=== PATIENT | female | born 2005 ===

== ENCOUNTER → 2024-08-25 23:59 | Outpatient (BNV) | payer OTHER, SELFPAY ==
--- NOTE | 2024-08-26 09:53 | A.OFFVIS_ITS ---
Intake Visit Reasons: follow up Allergies Seasonal Allergies Allergy (Mild, Verified 08/26/24 10:02) Nasal congestion HPI Comments Details: Met student today for orientation.? She has negative test done by Tricia on Saturday and states that she got her period 08/21.? She hasn?t picked up the control pills that tricia rx?d yet and thinks she wants to wait until her period is over before starting them.? Later during visit she states it took her 3 years of trying to get the last time and she thinks she will be unable to get this time.? She is having sex w/ baby?s father although she moved out of the place they shared together w/ his parents because she didn?t want to live with them - he and she have a good enough relationship but it was bad because of his parents.? So they still see each other (no sex while on period) - attempted discussion about starting pills on her period as most effective - but she seems disinterested in this conversation.? I reflected that she doesn?t think she will get so is unlikely to start pills and she states she doesn?t want to get NOW - would like to wait until she has finished school and has a job.? She hasn?t picked up the pills yet.? ROS:She is yawning a lot during visit.? Asked if she?s ok to talk to me and she states that she?s just tired. Always tired.? Tired during period especially.? She is congested - she states that she has allergies and they are bad.? She usually takes Flonase but has run out.? She would appreciate a prescription . I gave her a Claritin for this and one for tomorrow to see if this helps- she will let me know.? Once I get computer access I will put through RX for her for both these meds MOOD:? she states that she is ?ok? (PHQ 6) was depressed before and was started on anti-depressants but states that this was because she was in DCF custody and when she turned 16 she stopped them.? She was in DCF custody at age 15-18 and was on meds 16-17.? She states she was in DCF custody because she was a really bad kid ?I Think teenagers are terrible!?? She states she was skipping school a LOT and not going home, and smoking a lot of weed (she no longer smokes) and ignoring her mother?s attempts to get her back home and behaving better.? She states that her childhood prior to this period of her life was good.? Feels that DCF intervention saved her from things going really bad, but that this custody issue also caused her a lot of anxiety and she?s not ok because of it.? She says ?I don?t want to talk about it anymore? so we stopped the conversation and moved away with offer to revisit as desired.? I spoke with CV above and also she will monitor this closer.? Anxiety is more her issue now but she feels that it is nothing new and she can manage it - doesn?t want meds and doesn?t want therapy. (Let this go for now) NO CIG, CURRENTLY NO DRUGS (previous weed ?a lot?), and NO ALCOHOL SOCIAL Living w/ her mother happily - her mother watches the baby for her during school and Socorro is happy about that. ? She doesn?t have a primary - her baby goes to [facility] [address] in [place] and she would go there but she has to change her [facility] and it?s hard to do - ?I took care of the baby first - always take care of her first? PMH: no issues, gets headaches but not migraines FMH: non-contributory. ? PLAN: * Claritin and Flonase rx need to be put through EMR * concerns/risk- counseling and consultation w/ ramila David after visit to suggest she follow this? mj malhotra informed through this note as well. I am concerned that she is at risk for unintended second but she is not seeing this as issue at the moment.? She has relationship w Tricia on Saturday - so she will address as well * MOOD: I think there are deeper issues here, but she didn?t want to address today and with the goal of maintaining and building relationship I didn?t approach it further.? The door was left open here and her onsite counselor will attempt to continue to monitor. Approach therapy and med discussion again when appropriate? [facility] Medical History (Updated 08/26/24 @ 10:11 by GABY Freeman) Oral contraceptive prescribed Seasonal allergies Anxiety disorder, unspecified History of marijuana use History of adverse childhood experiences History of depression Female Reproductive History Menstrual control method: none Total pregnancies: 1 Full term: 1 Review of Systems Const Details: Counseling visit: All systems reviewed & are unremarkable except as noted in HPI and below Reports as per HPI Resp Reports as per HPI GI Reports as per HPI Musc Reports as per HPI Neuro Reports as per HPI Psych Reports as per HPI Physical Exam Const General: cooperative, healthy appearing and no acute distress Nutritional Appearance: well nourished Orientation/consciousness: oriented to person Limitations: no limitations HEENT Other: wnl Eyes Other: wnl Chest Other: easy breathing Resp Effort & Inspection: able to speak in complete sentences Skin Other: normal in appearance Neuro General: oriented to person Psych Other: see HPI Mental Status: mental status grossly normal Speech and movement: Clear speech present Attitude: cooperative Thought process: Normal thought process present Assessment & Plan Assessment & Plan (1) Anxiety disorder, unspecified: Code(s): F41.9 - Anxiety disorder, unspecified Category: Medical (2) Seasonal allergies: Code(s): J30.2 - Other seasonal allergic rhinitis Category: Medical (3) control counseling: Code(s): Z30.09 - Encounter for other general counseling and advice on contraception Category: Medical (4) Irregular menses: Code(s): N92.6 - Irregular menstruation, unspecified Category: Medical (5) Oral contraceptive prescribed: Comment: she hasn't picked up rx yet Code(s): Z30.011 - Encounter for initial prescription of contraceptive pills Category: Medical (6) Counseling and coordination of care: Code(s): Z71.89 - Other specified counseling Category: Medical (7) History of adverse childhood experiences: Code(s): Z62.9 - Problem related to upbringing, unspecified Category: Medical Plan PLAN: * claritin given now - Claritin and Flonase rx need to be put through EMR when visit is entered * concerns/risk-hcg documented as negative, control counseling - reinforced previous rx of ocp by different SOIL TECHNICIAN and consultation w/ ramila David after visit to suggest she follow this?issue w/ student - tricia informed through this note as well. I am concerned that she is at risk for unintended second but she is not seeing this as issue at the moment.? She has relationship w Tricia on Saturday - so she will address as well * MOOD: I think there are deeper issues here, but she didn?t want to address today and with the goal of maintaining and building relationship I didn?t approach it further.? The door was left open here and her onsite counselor will attempt to continue to monitor. Approach therapy and med discussion again when appropriate? Orders: Orders AMB HCG Urine Test Today N92.6 - Irregular menstruation, unspecified, Z32.02 - Encounter for test, result negative Medications: New fluticasone propionate 50 mcg/actuation (Flonase Allergy Relief) administer into each nostril 2 sprays intranasal DAILY 16 grams 1RF loratadine (Claritin) 10 mg PO DAILY PRN 30 tabs 0RF allergy symptoms Coding Level of Care Code New Pt Level 5 (27529) Diagnoses Anxiety disorder, unspecified F41.9 Seasonal allergies J30.2 control counseling Z30.09 Irregular menses N92.6 Oral contraceptive prescribed Z30.011 Counseling and coordination of care Z71.89 History of adverse childhood experiences Z62.9 Time Spent (min) 60 Comment extensive counseling and coord care with SOIL TECHNICIAN and onsite counselor
== END ==
PROVIDERS: PCP Nurse Practitioner Family; Visit Provider Nurse Practitioner Family
DX: F41.9 Anxiety disorder, unspecified (principal); J30.2 Other seasonal allergic rhinitis; Z30.09 Encounter for other general counseling and advice on contraception; N92.6 Irregular menstruation, unspecified; Z30.011 Encounter for initial prescription of contraceptive pills; Z71.89 Other specified counseling; Z62.9 Problem related to upbringing, unspecified
CPT/HCPCS: 99205

== ENCOUNTER → 2024-09-07 10:19 | Outpatient (BNV) | payer OTHER, SELFPAY ==
--- NOTE | 2024-09-07 10:19 | MHC.OFFVIS ---
Intake Visit Reasons: Amb Documentation Allergies Seasonal Allergies Allergy (Mild, Verified 08/26/24 10:02) Nasal congestion HPI Comments Details: student didn't sign up but stops by asking to be seen - she doesn't feel well. states her nephew was sick. she feels congested and has a sore throat (sent to do covid test - negative) and she has a cough. she appears mildly fatigued and disengaged from conversation - she wants to go home. offered meds and she declined - has dayquil at home has her own transportqation and wants to be excused. spoke w/ her onsite counselor and agreed to the plan. [facility] Medical History Oral contraceptive prescribed Seasonal allergies Anxiety disorder, unspecified History of marijuana use History of adverse childhood experiences History of depression Review of Systems Const All systems reviewed & are unremarkable except as noted in HPI and below Reports as per HPI Resp Reports as per HPI GI Reports as per HPI Musc Reports as per HPI Neuro Reports as per HPI Psych Reports as per HPI Physical Exam Const General: cooperative, no acute distress, lethargic and well groomed Nutritional Appearance: average body habitus Orientation/consciousness: patient oriented x3 and lethargic Limitations: no limitations HEENT Other: minor congestion, swallowing w/ more effort Head: Yes normal to inspection Ears: hearing grossly normal bilaterally General nose exam: Normal external nose present (mild congestion) Mouth: Normal oral and palatal mucosa present Teeth and gingiva: dentition normal Throat: Yes posterior oropharynx normal Eyes Other: wnl General: appearance normal, both eyes and all related structures Neck Other: minor non-tender lymphadenopathy - bilateral Chest Other: easy breathing Chest palpation & inspection: normal inspection of the chest Resp Effort & Inspection: normal respiratory effort and able to speak in complete sentences Auscultation: clear to auscultation bilaterally Skin Other: normal in appearance General skin exam: no rashes or lesions noted Neuro General: patient oriented x3 Psych Other: see HPI Mental Status: mental status grossly normal Speech and movement: Clear speech present Attitude: cooperative Thought process: Normal thought process present Assessment & Plan Assessment & Plan (1) Upper respiratory infection: Code(s): J06.9 - Acute upper respiratory infection, unspecified Category: Medical (2) Counseling and coordination of care: Code(s): Z71.89 - Other specified counseling Category: Medical (3) Oral contraceptive use: Code(s): Z30.41 - Encounter for surveillance of contraceptive pills Category: Social Hx (4) Seasonal allergies: Code(s): J30.2 - Other seasonal allergic rhinitis Category: Medical Plan coordination of care w/ onsite counselor - student is a bit disconnected from conversation - will go home because not feeling well and return tomorrow - excused. reviewed OCP use Coding Level of Care Code Est Pt Level 3 (28532) Diagnoses Upper respiratory infection J06.9 Counseling and coordination of care Z71.89 Oral contraceptive use Z30.41 Seasonal allergies J30.2 Time Spent (min) 30 Comment counseling/coord care
== END ==
PROVIDERS: PCP Nurse Practitioner Family; Visit Provider Nurse Practitioner Family
DX: J06.9 Acute upper respiratory infection, unspecified (principal); Z71.89 Other specified counseling; Z30.41 Encounter for surveillance of contraceptive pills; J30.2 Other seasonal allergic rhinitis
CPT/HCPCS: 99213

== ENCOUNTER → 2025-01-05 10:49 | Outpatient (BNV) | payer OTHER, SELFPAY ==
--- NOTE | 2025-01-05 10:50 | A.OFFVIS_ITS ---
Intake Visit Reasons: Amb Documentation Allergies Seasonal Allergies Allergy (Mild, Verified 08/26/24 10:02) Nasal congestion HPI Comments Details: sofi left note - saying student w/ bad jaw pain and is . she has a badlly broken tooth and can't get dentist to see her bc she is she thinks about 20 weeks. she is struggling to sleep and concentrate in class bc of pain. given tylenol and dentak to swab on painful area. [facility] Medical History Oral contraceptive prescribed Seasonal allergies Anxiety disorder, unspecified History of marijuana use History of adverse childhood experiences History of depression Review of Systems Const All systems reviewed & are unremarkable except as noted in HPI and below Reports as per HPI Resp Reports as per HPI GI Reports as per HPI Musc Reports as per HPI Neuro Reports as per HPI Psych Reports as per HPI Physical Exam Const General: cooperative, healthy appearing and no acute distress Nutritional Appearance: well nourished Orientation/consciousness: oriented to person Limitations: no limitations HEENT Mouth: other (broken tooth on lower right molar. very little of tooth left. no redness) Eyes Other: wnl Neck Other: no swollen glands Chest Other: easy breathing Resp Effort & Inspection: able to speak in complete sentences Other: visibly - no other issues noted Skin Other: normal in appearance Neuro General: oriented to person Psych Other: see HPI - appears uncomfortable Mental Status: mental status grossly normal Speech and movement: Clear speech present Attitude: cooperative Thought process: Normal thought process present Assessment & Plan Assessment & Plan (1) Jaw pain: Code(s): R68.84 - Jaw pain Category: Medical (2) Headache: Code(s): R51.9 - Headache, unspecified Category: Medical (3) as incidental finding: Code(s): Z33.1 - state, incidental Category: Medical Plan tylenol and dentak given w/ coord of onsite couselor to help her get to dental services navigating the issue Coding Level of Care Code Est Pt Level 2 (83754) Diagnoses Jaw pain R68.84 Headache R51.9 as incidental finding Z33.1 Time Spent (min) 15 Comment include counseling and coord care
== END ==
PROVIDERS: PCP Nurse Practitioner Family; Visit Provider Nurse Practitioner Family
DX: R68.84 Jaw pain (principal); R51.9 Headache, unspecified; Z33.1 Pregnant state, incidental
CPT/HCPCS: 99212